=== PATIENT | female | born 1975 | race Caucasian/White ===

== ENCOUNTER 2020-03-05 15:11 | Outpatient (RCR) | payer OTHER, SELFPAY ==
[2020-01-30 09:52] VITALS: BP 106/54; PULSE 86
[2020-03-05 16:47] VITALS: BP 96/49; PULSE 79
== END 2020-04-29 23:59 | disposition home or self-care (01) ==
LOC: ANHOBOP 15:11
PROVIDERS: Family Provider Obstetrics & Gynecology Gynecology; Visit Provider Obstetrics & Gynecology Gynecology
DX: O36.8120 Decreased fetal movements, second trimester, not applicable or unspecified (principal); Z3A.25 25 weeks gestation of pregnancy; Z3A.30 30 weeks gestation of pregnancy
CPT/HCPCS: 59025

== ENCOUNTER 2020-05-03 04:55 | Inpatient (IN) | payer OTHER, SELFPAY ==
[2020-05-03] VITALS (47 sets, daily range): BP systolic 74–185; BP diastolic 30–142; PULSE 55–181; RESP 14–16; TEMP 36.5–37; O2SAT 96–100; BMI 30.4
--- NOTE | 2020-05-03 05:11 | WPDANESEPP ---
Anes - Eval Pre Procedure Procedure: labor epidural Date/Time: 05/03/20 05:11 Surgeon: gilda Preop Diagnosis: pain during labor Pre Op Diagnosis: Induction of Labor Patient Data Age: 45 Gender: F Height: Weight: Allergies Allergy/AdvReac Type Severity Reaction Status Date / Time No Known Allergies Allergy Verified 03/01/18 10:12 Home Medications Medication Instructions Recorded Confirmed Type PNV cmb#95-ferrous fumarate-FA 1 tablet PO DAILY 04/09/20 04/09/20 History [] Patient hx anesthesia problems: none Family hx anesthesia problems: none PMFSH Family History Family History (Updated 04/09/20 @ 15:40 by Gennaro Edwards RN) Mother Epilepsy Father Asthma Social History Social History Substance use: never Gender identity (if verbalized by the patient): Female Spiritual care concerns: No Exam Day of Procedure 05/03/20 05:11
--- NOTE | 2020-05-03 05:14 | LDADM ---
This patient, Adelina Wu, was admitted to Labor/Delivery/Recovery 108 on 05/03/20 at 04:55. Plans for labor, pain management and were discussed with patient. Patient/family oriented to hospital policies and general routines including ID bracelet, bed and alarms, visiting hours, pain management, procedures, bathroom and other care routines, personal items, smoking policy, room service/diet and guest tray routines, security routines, and visiting hours. Patient/Family are encouraged to report perceived risks to care and to ask questions if they do not understand what they are told or what they should do. See OBIX for further documentation.
[2020-05-03 05:47] LABS: Basophils Percent Auto 0.5 % (0.2-1.2); Eosinophils Absolute Auto 0.1 K/mm3 (0-0.3); Eosinophils Percent Auto 1.5 % (0-4.4); Hematocrit 36.5 % (37.0-47.0); Immature Granulocyte Absolute 0.09 K/mm3 (0.00-0.031); Immature Granulocyte Percent A 1.5 % (0-0.5); Lymphocytes Absolute Auto 1.72 K/mm3 (0.9-3.2); Lymphocytes Percent Auto 27.9 % (18.3-44.2); Mean Corpuscular HGB Conc 32.9 g/dl (32-36); Mean Corpuscular Hemoglobin 29.6 pg (26-34); Mean Corpuscular Volume 90.1 fl (80-100); Mean Platelet Volume 10.7 fl (7.4-10.4); Monocytes Absolute Auto 0.5 K/mm3 (0.1-0.6); Monocytes Percent Auto 7.8 % (2.6-8.5); Neutrophils Absolute Auto 3.8 K/mm3 (1.3-6.7); Neutrophils Percent Auto 60.8 % (45.5-73.1); Platelet Count Result 127 k/mm3 (150-375); Red Blood Count 4.05 M/mm3 (4.2-5.4); Red Cell Distribution Width 14.4 % (11.5-14.5); White Blood Count 6.2 K/mm3 (4.5-10.0)
[2020-05-03] MEDS: OXYTOCIN 30 UNITS/NS 500 ML 30 UNITS/500 ML BAG IV CONT (05:49)
[2020-05-03] MEDS: LACTATED RINGERS 1,000 ML 125 ML IV CONT ×3 (05:49→12:24)
--- NOTE | 2020-05-03 07:52 | WPDOBADMIT ---
Obstetrics - Admit Note Admission Note: record reviewed. No pertinent additions to the history and/or any subsequent changes in the physical findings that are not consistent with the expected course of the were found. Additions to the history and/or subsequent changes in the physical findings follow. None. Here for MIL. Now /-3 AROM with clear fluid. FHTs reactive
[2020-05-03 10:20] LABS: Rapid Plasma Reagin Non-Reactive (NonReactive)
[2020-05-03] MEDS: ONDANSETRON INJ 4 MG/2 ML VIAL IV PUSH ×2 (11:29→11:35)
[2020-05-03] MEDS: FAMOTIDINE 20 MG/2 ML VIAL IV PUSH (11:35)
--- NOTE | 2020-05-03 13:17 | PM.OBPRVD ---
OB - Delivery Note Procedure Delivery date: 05/03/20 events: Labor Induction Intrapartal events: None Induction method: AROM and per pitocin protocol Delivery monitor: external FHT and internal uterine Route of delivery: Laceration description: None Specimen: Yes (placenta) Estimated blood loss (mL): 100 Anesthesia type: Epidural Disposition: floor Baby Weeks of gestation at delivery: 39 gender: Male Weight (pounds): 7 Weight (ounces): 5 presentation: vertex Placenta delivery description: Spontaneous cord vessel description: 3 Vessels (placenta with marginal insertion) score one minute: 9 score five minutes: 9
--- NOTE | 2020-05-03 13:18 | P.PCNOB_ITS ---
OB - Delivery Note Procedure events: Labor Induction Intrapartal events: None Laceration description: None Estimated blood loss (mL): 100 Anesthesia type: Epidural [place] Baby Weeks of gestation at delivery: 39 gender: Male Weight (pounds): 7 Weight (ounces): 5 presentation: vertex Placenta delivery description: Spontaneous score one minute: 9 score five minutes: 9
--- NOTE | 2020-05-03 13:18 | PM.OBDSVD ---
DS: Admitting Diagnosis Admitting Diagnosis Admitting Diagnosis: IUP 39 wks; marginal insertion of placenta OB - DS: Summary OB Procedures : NST and Ultrasound OB Procedures Intrapartum: Spontaneous Vag Delivery OB Procedures: : None Peripartum Data Infant Delivery Method: Natural Vaginal Laceration description: None complications: none Status at Discharge Functional status at discharge: independent ambulation Overall status at discharge: patient is progressing back to baseline Time Spent with Patient Time attestation: Total time spent providing and/or coordinating discharge services: DS: Data Data Completed and Pending Labs on day of discharge: Labs from last 24 hours 05/03/20 05/03/20 05/03/20 05:31 05:31 05:31 WBC 6.2 RBC 4.05 L Hgb 12.0 Hct 36.5 L MCV 90.1 MCH 29.6 MCHC 32.9 RDW 14.4 Plt Count 127 L MPV 10.7 H Immature Gran % (Auto) 1.5 H Neut % (Auto) 60.8 Lymph % (Auto) 27.9 [place] % (Auto) 7.8 Eos % (Auto) 1.5 Baso % (Auto) 0.5 Lymph # (Auto) 1.72 [place] # (Auto) 0.5 Eos # (Auto) 0.1 Baso # (Auto) 0.0 Abs Immat Gran (auto) 0.09 H Absolute Neuts (auto) 3.8 Absolute Nucleated RBC 0.0 Nucleated RBC % 0.0 % Immature Plt Fraction 4.0 RPR Non-reactive Blood Type A Positive Antibody Screen Negative Discharge Plan Discharge Attending physician on discharge: Keisha Adair Discharging Clinician: Forest Coyne Anticipated Discharge Date/Time: 05/05/20 13:19 Patient Disposition: Home, Self-Care Activity: may shower and pelvic rest Diet: regular Patient Instructions: Antibiotic Form Stand Alone Forms: General Discharge Information Follow-up/Referrals: Keisha Adair MD [Physician] - 6 Weeks Discharge Medications: Continued PNV cmb#95-ferrous fumarate-FA [] 28 mg iron- 800 mcg Tablet 1 tablet PO DAILY RF: 0 Date of admission: 05/03/20 04:55 Primary Care Provider: PHYSICIAN NOT ON STAFF,NONSTAFF Admitting Provider: Giovany,Keisha L. Attending physician on admission: Keisha Adair Condition: Stable Care Plan Goals: Plans vasectomy condoms until then
[2020-05-03] MEDS: OXYTOCIN 30 UNITS/NS 500 ML 30 UNITS/500 ML BAG 125 UNITS IV CONT (13:45)
--- NOTE | 2020-05-03 16:05 | PC.NURSE ---
Patient transferred to post room #279 via wheelchair. Support person present. Oriented to unit, room, information board, rooming in, admission packet and security measures. Patient verbalizes understanding.
[2020-05-03] MEDS: IBUPROFEN 600 MG TABLET PO (19:42)
[2020-05-04] MEDS: IBUPROFEN 600 MG TABLET PO ×3 (01:58→14:29)
[2020-05-04 05:28] LABS: Hematocrit 33.4 % (37.0-47.0)
[2020-05-04 07:35] VITALS: BP 108/69; PULSE 68; RESP 16; TEMP 36.6; O2SAT 99
--- NOTE | 2020-05-04 07:48 | WPDANLDPN2 ---
Anes-Prog Note L&D Date/Time: 05/04/20 07:48 Comfortable throughout: labor Neuraxial method: epidural Epidural/Spinal procedure site: clean & non-tender Neuro status: Neuro function grossly intact. Cardiovascular status: normal Respiratory status: normal Airway patency: baseline Mental status: baseline Post-Op hydration status: normal Vital Signs: Last Vital Signs Temp 36.8 C 05/03/20 19:15 Pulse 74 05/03/20 19:15 Resp 14 05/03/20 19:15 BP 86/48 L 05/03/20 19:15 Pulse Ox 97 05/03/20 19:15 I/O: Intake & Output 05/03/20 05/03/20 05/04/20 15:59 23:59 07:59 Intake Total 2500 Output Total 120 Balance 2380 Post-procedural complaints: none Patient feedback: Patient satisfied with anesthetic care.
[2020-05-04] MEDS: DOCUSATE SODIUM 100 MG CAPSULE PO (08:31)
--- NOTE | 2020-05-04 09:16 | PM.OBPNVD ---
OB - PN: Subj Subjective Date/time seen: 05/04/20 09:16 Patient comments: no complaints and pain well controlled baby status: doing well OB - PN: Obj Data Labs CBC & Chem 7: 05/04/20 05:13 Labs: Laboratory Results - last 24 hr 05/03/20 05/04/20 05:31 05:13 Hgb 11.0 L Hct 33.4 L RPR Non-reactive OB - PN A/P Plan day: 1 Plan: routine care, discharge home and follow up 6 weeks Time Spent With Patient Time: Total time spent is greater than 50% in coordination of care (as documented) at patient's floor/unit and/or counseling patient: Exam : Bimanual exam- vagina & uterus: other (Uterus firm, nt @U)
[2020-05-05 09:17] VITALS: BP 106/51; PULSE 71; RESP 20; O2SAT 100
== END 2020-05-04 15:43 | disposition home or self-care (01) | DRG 807 ==
LOC: ANHLDR 13:19 → ANHOB2 16:12
PROVIDERS: Admitting Provider Obstetrics & Gynecology Gynecology; Visit Provider Obstetrics & Gynecology Gynecology
DX: O44.23 Partial placenta previa NOS or without hemorrhage, third trimester (principal); Z37.0 Single live birth; Z3A.39 39 weeks gestation of pregnancy
CPT/HCPCS: 36415; 85014; 85018; 85025; 85055; 86592; 86850; 86900; 86901; 88307; A9270; J2405; J2590; J2795; J7030; J7120